=== PATIENT | male | born 1990 | race Two or more races ===

== ENCOUNTER 2021-04-04 22:08 | Emergency (ER) | payer BC, MEDICAID ==
[~2021-04-04] VITALS: Ht 180.3 cm; Wt 66.7 kg
--- NOTE | 2021-04-04 22:38 | NUR ---
DR. EDMONDSON AT BEDSIDE, MSE IN PROGRESS.
[2021-04-04] MEDS ORDERED: ONDANSETRON ODT 4 MG TAB.RAPDIS SL ONE (22:45)
[2021-04-04] MEDS ORDERED: HYDROMORPHONE 1 MG/1 ML DISP.SYRIN IM ONE (22:45)
--- NOTE | 2021-04-04 22:55 | NUR ---
XRAY AT BEDSIDE.
[2021-04-04] MEDS ORDERED: ONDANSETRON HCL 4 MG TABLET ONE (22:57)
[2021-04-04] MEDS ORDERED: HYDROMORPHONE 2 MG/1 ML DISP.SYRIN ONE (22:57)
[2021-04-04] MEDS ORDERED: OXYC-128 PO (23:57)
--- NOTE | 2021-04-05 00:35 | NUR ---
PT TAKEN DOWN TO CT.
--- NOTE | 2021-04-05 00:48 | NUR ---
PT RETURNED FROM CT.
[2021-04-05] MEDS ORDERED: OXYC-128 PO (01:18)
--- NOTE | 2021-04-05 01:27 | NUR ---
Patient discharged to home in stable condition. Written and verbal after care instructions given. Patient verbalizes understanding of instructions. Stressed follow up or return to ER for worsening s/s. Denies any pain/discomfort upon discharge. Steady gait.
[2021-04-05 01:28] VITALS: BP 120/72
== END 2021-04-05 01:28 | disposition home or self-care (01) ==
LOC: ER 22:12
DX: S00.83XA Contusion of other part of head, initial encounter (principal); W19.XXXA Unspecified fall, initial encounter; Y92.89 Other specified places as the place of occurrence of the external cause; R00.0 Tachycardia, unspecified; Z87.892 Personal history of anaphylaxis; Z88.6 Allergy status to analgesic agent; J45.909 Unspecified asthma, uncomplicated
CPT/HCPCS: 70110; 70486; 96372; 99284; J1170; A4663; Q0162